=== PATIENT | female | born 1995 | race Caucasian/White ===

== ENCOUNTER 2020-11-14 22:58 | Emergency (ER) | payer OTHER ==
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
[2020-11-15] MEDS ORDERED: Ibuprofen 600 MG Tab PO ONE (00:45)
--- NOTE | 2020-11-15 07:40 | CR ---
Right knee: 4 views of the right knee were obtained. Comparison: No prior knee study is available. Medial and lateral joint compartments are maintained in height. No joint effusion is seen. No acute fracture or other bony abnormality is appreciated. Impression: 1. Nothing acute is appreciated on right knee exam. Diagnostic code #1
== END 2020-11-15 00:55 ==
LOC: JD.ED 22:58
DX: S80.01XA Contusion of right knee, initial encounter (principal); Z87.891 Personal history of nicotine dependence; Y04.0XXA Assault by unarmed brawl or fight, initial encounter
CPT/HCPCS: 73564; 99283; A9270; 99282